=== PATIENT | female | born 1980 | race Caucasian/White ===

== ENCOUNTER 2020-12-31 02:56 | Inpatient (IN) ==
[2020-12-31] MEDS ORDERED: D5 1/2 NS 1000 ML 1,000 ML IV ONE (03:14)
[2020-12-31 03:35] VITALS: BMI 23.3
[2020-12-31 03:44] LABS: BASOPHILS % (AUTO) 0.3 % (0.2-1.0); EOSINOPHILS % (AUTO) 0.3 % (0.9-2.9); HEMATOCRIT 28.5 % (36.0-47.0); HEMOGLOBIN 9.5 g/dL (12.0-16.0); LYMPHOCYTES # (AUTO) 1.8 X10^3/uL (1.3-2.9); LYMPHOCYTES % (AUTO) 11.4 % (21.0-51.0); MEAN CORPUSCULAR HEMOGLOBIN 26.8 pg (27.0-34.0); MEAN CORPUSCULAR HGB CONC 33.3 g/dL (33.0-35.0); MEAN CORPUSCULAR VOLUME 80.3 fL (80.0-100.0); MEAN PLATELET VOLUME 8.8 fL (7.4-11.0); MONOCYTES # (AUTO) 1.3 x10^3/uL (0.3-0.8); MONOCYTES % (AUTO) 8.2 % (0.0-13.0); NEUTROPHILS # (AUTO) 12.9 x10^3/uL (2.2-4.8); NEUTROPHILS % (AUTO) 79.8 % (42.0-75.0); PLATELET COUNT 195 X10^3/uL (150.0-450.0); RED BLOOD COUNT 3.54 X10^6/uL (3.5-5.4); RED CELL DISTRIBUTION WIDTH 17.7 % (11.6-16.5); WHITE BLOOD COUNT 16.2 X10^3/uL (3.6-10.0)
[2020-12-31 03:48] LABS: BILIRUBIN,URINE NEGATIVE (NEGATIVE); BLOOD/HEMOGLOBIN,URINE 4+ (NEGATIVE); GLUCOSE, URINE NEGATIVE (NEGATIVE); KETONES,URINE NEGATIVE (NEGATIVE); LEUKOCYTE ESTERASE ,URINE 2+ (NEGATIVE); NITRITES,URINE NEGATIVE (NEGATIVE); PROTEIN,URINE NEGATIVE (NEGATIVE); UROBILINOGEN,URINE NORMAL (NORMAL)
[2020-12-31 03:53] LABS: ALANINE AMINOTRANSFERASE 9 Units/L (12-78); ALKALINE PHOSPHATASE 237 Units/L (46-116); ASPARTATE AMINO TRANSFERASE 18 Units/L (15-37); BLOOD UREA NITROGEN 10 mg/dL (7-18); CALCIUM 8.2 mg/dL (8.5-10.1); CARBON DIOXIDE 19.5 mmol/L (21-32); CHLORIDE 103 mmol/L (98-107); COR CA(FOR HYPOALB) 9.8 mg/dL (8.5-10.1); SODIUM 134 mmol/L (136-145); TOTAL PROTEIN 6.4 g/dL (6.4-8.2); eGFR NON BLACK RACES > 60 (>60)
[2020-12-31 03:54] LABS: APPEARANCE,URINE CLEAR (CLEAR); BACTERIA,URINE NEGATIVE /HPF (NEGATIVE); COLOR,URINE PALE YELLOW (YELLOW); SQUAMOUS EPITHELIAL CELL,UR FEW /HPF (NEGATIVE)
[2020-12-31 03:59] LABS: AMNISURE ROM TEST NO MEMBRANES RUPTURE (NO RUPTURE)
[2020-12-31] MEDS ORDERED: D5LR 1L W PITOCIN 10 UNITS/L 10 UNITS/1,000 ML BAG IV PRN (04:00)
[2020-12-31] MEDS ORDERED: D5 1/2 NS 1000 ML 1,000 ML IV SCH ×2 (04:00)
[2020-12-31] MEDS ORDERED: REGLAN INJ 10 MG VIAL IVP PRN (04:00)
[2020-12-31] MEDS ORDERED: PITOCIN IVP ONE (04:00)
[2020-12-31] MEDS ORDERED: PHENERGAN INJ 25 MG IM PRN ×2 (04:00→12:55)
[2020-12-31] MEDS ORDERED: AMPICILLIN VIAL 2 GRAM 2 G in NS 100 ML IV + SPIKE MINIBAG* 100 ML IV SCH (04:00)
[2020-12-31] MEDS ORDERED: PITOCIN ONE (04:26)
[2020-12-31] MEDS ORDERED: BETADINE SOLN ONE (04:26)
[2020-12-31] MEDS ORDERED: D5LR 1L W PITOCIN 10 UNITS/L 10 UNITS/1,000 ML BAG IV ONE ×2 (04:27→11:29)
[2020-12-31] MEDS ORDERED: D5 1/2 NS 1L W PITOCIN 20 UNITS/L 20 UNITS/1,000 ML BAG IV ONE (04:27)
[2020-12-31] MEDS ORDERED: NS 100 ML IV 100 ML ONE ×2 (04:28→08:30)
[2020-12-31] MEDS ORDERED: FENTANYL VIAL INJ 100 mcg ONE ×3 (04:39→04:41)
[2020-12-31] MEDS ORDERED: LR 1000 ML IV 1,000 ML IV ONE ×2 (04:39→13:50)
[2020-12-31] MEDS: AMPICILLIN VIAL 2 GRAM ONE ×2 (04:40→07:57)
[2020-12-31] MEDS ORDERED: NAROPIN EPIDURAL 0.2% 100 ML ONE (04:40)
[2020-12-31] MEDS ORDERED: EPHEDRINE SULFATE INJ ONE (06:33)
[2020-12-31] MEDS ORDERED: AMPICILLIN VIAL 1 GRAM 1 G in NS 50 ML IV 50 ML IV SCH (08:00)
[2020-12-31] MEDS ORDERED: AMPICILLIN VIAL 1 GRAM ONE (08:30)
[2020-12-31] MEDS ORDERED: ZOFRAN INJ 4 MG VIAL ONE (11:46)
[2020-12-31] MEDS ORDERED: MOTRIN TAB 800 MG PO PRN (12:55)
[2020-12-31] MEDS ORDERED: D5 1/2 NS 1000 ML 1,000 ML with PITOCIN 20 UNITS IV SCH ×2 (13:00)
[2020-12-31] MEDS ORDERED: DERMOPLAST PAIN RELIEF SPRAY TOP PRN (13:38)
[2020-12-31] MEDS ORDERED: AMBIEN PO PRN (13:38)
[2020-12-31] MEDS ORDERED: MILK OF MAGNESIA PO PRN (13:38)
[2020-12-31] MEDS: LR 1000 ML IV 1,000 ML IV SCH (13:55)
[2020-12-31] MEDS: MOTRIN TAB 800 MG PO PRN (15:26)
[2021-01-01] MEDS: LR 1000 ML IV 1,000 ML IV SCH (00:37)
[2021-01-01] MEDS: MOTRIN TAB 800 MG PO PRN (04:36)
[2021-01-01 06:52] LABS: HEMATOCRIT 23.3 % (36.0-47.0); HEMOGLOBIN 7.7 g/dL (12.0-16.0)
[2021-01-01] MEDS ORDERED: PRENATAL PLUS PO SCH (09:00)
[2021-01-01] MEDS ORDERED: INFeD or DEXFERRUM 25 MG in NS 100 ML IV 100 ML IV ONE (10:00)
[2021-01-01] MEDS ORDERED: NS IV ONE (11:00)
[2021-01-01] MEDS ORDERED: INFED OR DEXFERRUM IV ONE (11:00)
[2021-01-01 18:18] VITALS: BP 133/80
== END 2021-01-01 17:50 | disposition home or self-care (01) | DRG 807 ==
LOC: ER 03:01 → LD 04:10 → MED/SURG 14:00
PROVIDERS: ADMIT Obstetrics & Gynecology Obstetrics; ATTEND Obstetrics & Gynecology Obstetrics
DX: Z3A.38 38 weeks gestation of pregnancy; O80 Encounter for full-term uncomplicated delivery; Z37.0 Single live birth; Z20.822 Contact with and (suspected) exposure to COVID-19